=== PATIENT | male | born 1995 | race African-American/Black ===

== ENCOUNTER 2020-12-22 23:50 | Emergency (ER) | payer OTHER ==
[~2020-12-22] VITALS: Ht 162.6 cm; Wt 59.0 kg
[2020-12-23 00:17] LABS: ABSOLUTE NEUTROPHILS 3.5 thou/uL (1.4-8.2); BASOPHILS 1.1 % (0.0-2.0); EOSINOPHILS 1.8 % (0.0-3.0); HEMATOCRIT 44.2 % (42.0-52.0); HEMOGLOBIN 14.8 gm/dL (14.0-18.0); LYMPHOCYTES 32.2 % (24.0-44.0); MCH 30.4 pg (26.0-34.0); MCHC 33.4 g/dL (28.0-37.0); MONOCYTES 11.1 % (1.0-8.0); PLATELET COUNT 301 thou/uL (150-400); POLYS 53.8 % (36.0-66.0); RBC 4.85 mil/uL (4.50-6.00); RDW 13.7 % (10.5-14.5); WBC 6.5 thou/uL (4.0-11.0)
[2020-12-23 00:25] LABS: CALCIUM 8.8 mg/dL (8.5-10.1); CREATININE 0.8 mg/dL (0.7-1.3); POTASSIUM 3.3 mmol/L (3.5-5.1)
[2020-12-23 00:31] LABS: ALBUMIN 4.3 g/dL (3.4-5.0); MAGNESIUM 2.4 mg/dL (1.8-2.4); SALICYLATE 3.5 mg/dL (2.8-20.0); TOTAL BILIRUBIN 0.2 mg/dL (0.2-1.0); TOTAL PROTEIN 8.3 g/dL (6.4-8.2)
[2020-12-23 01:14] LABS: URINE BILIRUBIN NEGATIVE (Negative); URINE BLOOD NEGATIVE (Negative); URINE CLARITY CLEAR; URINE COLOR YELLOW; URINE GLUCOSE-RANDOM* NEGATIVE (Negative); URINE KETONES NEGATIVE (Negative); URINE LEUKOCYTES-REFLEX NEGATIVE (Negative); URINE NITRITE-REFLEX NEGATIVE (Negative); URINE PROTEIN (DIPSTICK) NEGATIVE (Negative); URINE SPECIFIC GRAVITY <= 1.005 (1.005-1.035); URINE UROBILINOGEN 0.2 E.U./dl (0.2-1.0)
[2020-12-23 01:24] LABS: AMP/METHAMP Negative (Negative); BARBITURATES Negative (Negative); BENZODIAZEPINES Negative (Negative); METHADONE Negative (Negative); OPIATES Negative (Negative); PCP Negative (Negative)
[2020-12-23 01:41] LABS: COCAINE Negative (Negative)
--- NOTE | 2020-12-23 09:16 | EKG ---
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: ARIANE : 1995 Requested By: Jesse Anderson Order Number: [id number] MD: Alec Michaud Measurements Intervals [place] Rate: 93 P: 59 HI: 148 QRS: 94 QRSD: 106 T: 42 QT: 360 QTc: 448 Interpretive Statements Sinus rhythm Right ventricular conduction delay ST elev, probable normal early repol pattern No previous ECG available for comparison Electronically Signed On 12-23-2020 9:16:02 CDT by Alec Michaud [email or web address] <ELECTRONICALLY SIGNED> By: Alec Michaud MD, [facility] 12/23/20 0916 0011 0011 Alec Michaud MD, FACC /EPI
[2020-12-23 11:34] VITALS: BP 118/70
== END 2020-12-23 11:36 ==
LOC: ER 23:50
PROVIDERS: Emergency Medicine
DX: R45.851 Suicidal ideations (principal); F32.9 Major depressive disorder, single episode, unspecified; F10.129 Alcohol abuse with intoxication, unspecified; Z88.5 Allergy status to narcotic agent; Z20.822 Contact with and (suspected) exposure to COVID-19; Y90.8 Blood alcohol level of 240 mg/100 ml or more